=== PATIENT | female | born 1965 | race Caucasian/White ===

== ENCOUNTER 2020-03-09 01:23 | Emergency (ER) | payer BC, MEDICAID, OTHER ==
[~2020-03-09] VITALS: Ht 167.6 cm; Wt 81.7 kg
--- NOTE | ~2020-03-09 | EMS ---
[address] [address] EMS Patient Care Report Name: FERNANDO GRIFFITH Room #: PRE M.R.#: [id number] Admission: Attend Phys: Discharge: Date of : 65 Report #: [id number] THIS REPORT FOR: //name// Report Transmitted: 03/09/2020 01:37 EMS Care Summary [facility] Incident [id number] @ 03/09/2020 00:34 Incident Location [address] [place] [address] Patient FERNANDO GRIFFITH Female, 54 Years 1965 Patient Address [address] [place] [address] Patient History Dementia,Hypertension (HTN), Patient Allergies Zoloft, Patient Medications Desmopressin (DDAVP), Keppra, Rosuvastatin, Chief Complaint "My head hurts a little bit" Disposition Transported No Lights/[place] Dispatch Reason Headache Transported To [facility] Narrative M1134 responds to report of headache. Enters scene to find one pt ambulatory about lobby of memory care facility. 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 Pt does not, [address] [address] EMS Patient Care Report Name: FERNANDO GRIFFITH Room #: PRE YEIMY Goodman#: [id number] Admission: Attend Phys: Discharge: Date of : 65 Report #: [id number] however, exhibit any signs/symptoms of cognitive decline or memory problems, is A&Ox4 at all times. Pt staff report that they noticed she was hypertensive at 1700 yesterday afternoon, and that serial checks showed her with increasing BP. Pt states that she has no CP, SOB, Palpitations, or other signs of ACS. Pt states that her only symptom is a "very small headache". Pt's staff desire that she be transported to the ED for evaluation and pt agrees with this. Pt denies any recent trauma or surgery and denies use of blood thinners. Pt's normal hospital preference would be [facility], but due to their "high volume" status, pt chooses [facility]. Serial 12 leads w/ V4R are unremarkable. Supportive care only required en route. NTG withheld as pt is transiently asymptomatic although hypertensive. Care transferred to [facility] staff without incident. M1134 clears and returns to service. Initial Vitals @00:57P: 63,Pain: 08/22,[place] Suspected: false @00:59P: 63,Pain: 08/22,GCS: 15, @00:47P: 70,R: 16,BP: 220/139,Pain: 08/22,GCS: 15,SpO2: 96,Revised Trauma: 12, @00:56P: 63,R: 16,BP: 215/135,Pain: 0/10,GCS: 15,SpO2: 96,Revised Trauma: 12, @01:15P: 67,R: 16,BP: 158/80,Pain: 1,GCS: 15,SpO2: 95,Revised Trauma: 12, Assessments @00:46MENTAL:Person Oriented,Place Oriented,Event Oriented,SKIN:HEENT:LUNG SOUNDS:ABDOMEN:PELVIS//GI:EXTREMITIES:PULSE:NEURO: Impression Hypertension Procedures @00:5912-Lead ECGResponse: UnchangedSucceeded@00:5712-Lead ECGResponse: UnchangedSucceeded@00:55Saline Lock 0cc (22 ga) Site: Hand-LeftResponse: UnchangedFailed@00:52Saline Lock 0cc (18 ga) Site: Antecubital-RightResponse: UnchangedFailed@00:56Saline Lock 0cc (22 ga) Site: Hand-RightResponse: UnchangedFailed@PTASurgical Mask on PatientResponse: Unchanged Timeline WARD ASSISTANT,Surgical Mask on Patient,Response: Unchanged 00:31,Call Received 00:31,Psap Call 00:34,Dispatched 00:35,En Route 00:43,On Scene 00:45,At Patient 00:47,BP: 220/139 M,PULSE: 70,RR: 16 R,SPO2: 96 Ox,ETCO2: ,BG: ,PAIN: 1,GCS: 15, 00:52,Saline Lock 0cc 18 ga Site: Antecubital-Right,Response: UnchangedFailed, 00:55,Saline Lock 0cc 22 ga Site: Hand-Left,Response: UnchangedFailed, [facility] [address] [place] [address] EMS Patient Care Report Name: GLADISFERNANDO Room #: [facility] M.R.#: [id number] Admission: Attend Phys: Discharge: Date of : 65 Report #: [id number] 00:56,Saline Lock 0cc 22 ga Site: Hand-Right,Response: UnchangedFailed, 00:56,BP: 215/135 M,PULSE: 63,RR: 16 R,SPO2: 96 Ox,ETCO2: ,BG: ,PAIN: 0,GCS: 15, 00:57,12-Lead ECG,Response: UnchangedSucceeded, 00:57,BP: / M,PULSE: 63,RR: R,SPO2: Ox,ETCO2: ,BG: ,PAIN: 1,GCS: , 00:59,12-Lead ECG,Response: UnchangedSucceeded, 00:59,BP: / M,PULSE: 63,RR: R,SPO2: Ox,ETCO2: ,BG: ,PAIN: 1,GCS: 15, 01:06,Depart Scene 01:15,BP: 158/80 M,PULSE: 67,RR: 16 R,SPO2: 95 Ox,ETCO2: ,BG: ,PAIN: 1,GCS: 15, 01:18,At Destination 01:33,Call Closed Disclaimer v1.1 Copyright 2020 [employer] This EMS Care Summary contains data elements from the applicable legal record (which may be displayed differently). It is designed to provide pertinent information for the following purposes: continuity of care, clinical quality, and state data reporting. The complete legal record is available to ED staff and administrators of the receiving hospital in [employer]'s Patient Tracker. All data is provided "as is."
[2020-03-09] MEDS ORDERED: LEVETIRACETAM500 M1 PO (01:44)
[2020-03-09] MEDS ORDERED: ROSUVASTATIN CA10 MG PO (01:45)
[2020-03-09 02:33] LABS: ABSOLUTE NEUTROPHILS 1.7 thou/uL (1.4-8.2); BASOPHILS 0.7 % (0.0-2.0); HEMATOCRIT 40.5 % (37.0-47.0); HEMOGLOBIN 13.6 gm/dL (12.0-15.0); LYMPHOCYTES 48.7 % (24.0-44.0); MCH 28.2 pg (26.0-34.0); MCHC 33.7 g/dL (28.0-37.0); MCV 83.7 fL (80.0-100.0); MONOCYTES 9.6 % (1.0-8.0); PLATELET COUNT 235 thou/uL (150-400); RBC 4.84 mil/uL (4.20-5.00); RDW 12.9 % (10.5-14.5); WBC 4.8 thou/uL (4.0-11.0)
[2020-03-09 02:45] LABS: CALCIUM 8.6 mg/dL (8.5-10.1); CREATININE 0.5 mg/dL (0.6-1.0); POTASSIUM 3.5 mmol/L (3.5-5.1)
[2020-03-09 04:15] VITALS: BP 186/112
== END 2020-03-09 04:16 | disposition home or self-care (01) ==
LOC: ER 01:23
PROVIDERS: Emergency Medicine
DX: I10 Essential (primary) hypertension (principal); Z85.841 Personal history of malignant neoplasm of brain; Z79.899 Other long term (current) drug therapy; Z88.8 Allergy status to other drugs, medicaments and biological substances